=== PATIENT | male | born 1955 | race Hispanic/Latino ===

== ENCOUNTER 2017-06-06 16:51 | Observation (INO) | payer BC, OTHER ==
[~2017-06-06] VITALS: Ht 170.2 cm; Wt 85.7 kg
[2017-06-06] MEDS ORDERED: ASPIRIN 81 MG CHEW TAB PO ONE (21:15)
[2017-06-06] MEDS ORDERED: AMLODIPINE BESYL5 MG PO (21:34)
[2017-06-06] MEDS ORDERED: ATENOLOL-CHLOR1 EAC1 PO (21:34)
[2017-06-06] MEDS ORDERED: TADALAFIL PO (21:34)
[2017-06-06] MEDS ORDERED: VITAMIN D31000 UNI1 PO (21:34)
[2017-06-06] MEDS ORDERED: ASPIR 8181 MG PO (21:34)
[2017-06-06] MEDS ORDERED: ATORVASTATIN CA10 MG PO (21:34)
[2017-06-06 21:43] LABS: BASOPHILS % 0.3 % (0.0-1.0); EOSINOPHILS # (AUTO) 0.2 (0.0-0.4); EOSINOPHILS % 1.3 % (0.0-6.0); HEMATOCRIT 35.5 % (38.2-49.6); HEMOGLOBIN 11.9 g/dL (14.0-18.0); LYMPHOCYTES # (AUTO) 2.6 (1.0-3.2); MEAN CORPUSCULAR HEMOGLOBIN 27.9 pg (28-32); MEAN CORPUSCULAR HGB CONC 33.5 g/dL (31-35); MEAN CORPUSCULAR VOLUME 83.3 fL (81-99); MONOCYTES # (AUTO) 1.1 (0.2-0.8); MONOCYTES % 8.2 % (4.4-11.3); NEUTROPHILS # (AUTO) 9.7 (2.1-6.9); NEUTROPHILS % 70.8 % (38.7-80.0); PLATELET COUNT 267 x10e3/uL (140-360); RED BLOOD COUNT 4.26 x10e6/uL (4.3-5.7); RED CELL DISTRIBUTION WIDTH 14.4 % (11.7-14.4)
[2017-06-06 21:51] LABS: INR 0.91; PROTHROMBIN TIME 12.7 seconds (11.9-14.5)
[2017-06-06 21:52] LABS: PARTIAL THROMBOPLASTIN TIME 26.8 seconds (23.8-35.5)
[2017-06-06 22:03] LABS: ALANINE AMINOTRANSFERASE 15 IU/L (0-55); ALBUMIN 3.9 g/dL (3.5-5.0); ALBUMIN/GLOBULIN RATIO 1.3 (0.8-2.0); ALKALINE PHOSPHATASE 52 IU/L (40-150); ANION GAP 13.1 mmol/L (8-16); BLOOD UREA NITROGEN 18 mg/dL (7-26); BUN/CREATININE RATIO 21 (6-25); CALCIUM 9.1 mg/dL (8.4-10.2); CARBON DIOXIDE 29 mmol/L (22-29); CHLORIDE 100 mmol/L (98-107); CREATINE KINASE 117 IU/L (30-200); CREATININE, SERUM 0.84 mg/dL (0.72-1.25); EST GLOMERULAR FILTRATION RATE > 60 ML/MIN (60-); GLUCOSE 111 mg/dL (74-118); POTASSIUM 3.1 mmol/L (3.5-5.1); SODIUM 139 mmol/L (136-145)
[2017-06-06 22:11] LABS: TROPONIN I 0.015 ng/mL (0-0.300)
[2017-06-06] MEDS ORDERED: PANTOPRAZOLE 40 MG 10ML VIAL IV STA (22:16)
[2017-06-06] MEDS ORDERED: SODIUM CHLORIDE 0.9% 1000ML 1,000 ML IV STA (22:29)
[2017-06-06] MEDS ORDERED: SODIUM CHLORIDE 0.9% 1000ML 1,000 ML IV SCH (23:17)
[2017-06-07] VITALS (8 sets, daily range): BP systolic 95–121; BP diastolic 59–83
[2017-06-07] MEDS ORDERED: SODIUM CHLORIDE 0.9% 1000ML 1,000 ML IV ONE
[2017-06-07 06:47] LABS: BASOPHILS % 0.3 % (0.0-1.0); EOSINOPHILS # (AUTO) 0.2 (0.0-0.4); EOSINOPHILS % 2.2 % (0.0-6.0); HEMATOCRIT 25.1 % (38.2-49.6); HEMOGLOBIN 8.6 g/dL (14.0-18.0); LYMPHOCYTES # (AUTO) 1.8 (1.0-3.2); LYMPHOCYTES % 24.4 % (18.0-39.1); MEAN CORPUSCULAR HEMOGLOBIN 28.1 pg (28-32); MEAN CORPUSCULAR HGB CONC 34.3 g/dL (31-35); MONOCYTES # (AUTO) 0.7 (0.2-0.8); MONOCYTES % 9.2 % (4.4-11.3); NEUTROPHILS # (AUTO) 4.7 (2.1-6.9); NEUTROPHILS % 63.5 % (38.7-80.0); PLATELET COUNT 178 x10e3/uL (140-360); RED BLOOD COUNT 3.06 x10e6/uL (4.3-5.7); RED CELL DISTRIBUTION WIDTH 14.6 % (11.7-14.4)
[2017-06-07 07:12] LABS: ALANINE AMINOTRANSFERASE 13 IU/L (0-55); ALBUMIN 2.8 g/dL (3.5-5.0); ALBUMIN/GLOBULIN RATIO 1.5 (0.8-2.0); ALKALINE PHOSPHATASE 45 IU/L (40-150); ANION GAP 10.7 mmol/L (8-16); BLOOD UREA NITROGEN 17 mg/dL (7-26); BUN/CREATININE RATIO 25 (6-25); CALCIUM 7.6 mg/dL (8.4-10.2); CARBON DIOXIDE 26 mmol/L (22-29); CHLORIDE 106 mmol/L (98-107); CREATININE, SERUM 0.67 mg/dL (0.72-1.25); EST GLOMERULAR FILTRATION RATE > 60 ML/MIN (60-); GLUCOSE 107 mg/dL (74-118); SODIUM 140 mmol/L (136-145)
[2017-06-07 07:14] LABS: POTASSIUM 2.7 mmol/L (3.5-5.1)
[2017-06-07 07:34] LABS: HEMATOCRIT 25.5 % (38.2-49.6); HEMOGLOBIN 8.5 g/dL (14.0-18.0)
[2017-06-07] MEDS ORDERED: POTASSIUM CHLORIDE 20 MEQ TAB CR PO STA (08:12)
[2017-06-07] MEDS ORDERED: POTASSIUM CHLORIDE 20MEQ/100ML 200 ML IV ONE (08:30)
[2017-06-07] MEDS ORDERED: PANTOPRAZOLE 40 MG 10ML VIAL IV SCH (09:00)
[2017-06-07] MEDS ORDERED: AMLODIPINE BESYLATE 5 MG TAB PO SCH (09:00)
[2017-06-07] MEDS: PANTOPRAZOLE 40 MG 10ML VIAL IV SCH ×2 (09:35→21:45)
--- NOTE | 2017-06-07 09:46 | History and Physical ---
PRIMARY CARE PHYSICIAN: Dr. Geovani Younger CHIEF COMPLAINT: Bright red blood per rectum. HISTORY OF PRESENT ILLNESS: This is a 62-year-old man with a history of prediabetes and remote history of bright red blood per rectum many years ago at which time it spontaneously resolved without going to the hospital. The patient now developing bright red blood per rectum, which occurred 4 times in 1 day. Therefore, he came to the hospital. Denies any abdominal pain. His last colonoscopy was in 2012, which showed some polyps. Denies any other symptoms at this time. PAST MEDICAL HISTORY: Prediabetes, hypertension, hyperlipidemia, bright red blood per rectum, colonic polyps, cigarette use, and alcohol use. PAST SURGICAL HISTORY: None. ALLERGIES: PER ELECTRONIC MEDICAL RECORD. FAMILY HISTORY/SOCIAL HISTORY: The patient is . He has 4 children. Drinks about 2-3 beers a day and 1-2 cigarettes per day. MEDICATIONS: Per electronic medical record. REVIEW OF SYSTEMS: Denies any dizziness or chest pain. PHYSICAL EXAMINATION VITAL SIGNS: Reviewed. GENERAL: A tired-appearing man resting in bed. HEENT: Anicteric. Pupils respond to light. No oral lesions. CARDIOVASCULAR: Normal S1 and S2. LUNGS: Moderate breath sounds. ABDOMEN: Soft, nontender and nondistended. EXTREMITIES: No edema or calf tenderness. NEUROLOGICAL: Alert and oriented times 3. Moves all extremities. SKIN: Dry. PSYCHIATRIC: Normal affect. LABS: Reviewed. MEDICATIONS: Reviewed. ASSESSMENT AND PLAN: This is a 62-year-old man with: 1. Gastrointestinal bleed: Will consult gastroenterology services for endoscopy. Will start intravenous proton pump inhibitor and avoid nonsteroidal anti-inflammatory drugs. 2. Hypotension: Bolus fluids as needed. 3. Electrolyte derangement with hypokalemia: Replace and recheck. 4. Normocytic anemia: There is a trend downwards. Will follow and transfuse if hemoglobin is less than 8. 5. 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 6. Prophylaxis: Will use sequential compression devices and proton pump inhibitor. 7. Disposition: Follow up gastroenterology recommendations. Follow H and H and potassium levels later on this morning. Job#: [id number] RI
[2017-06-07] MEDS: KCL 20MEQ/.9 SOD CHL 1,000 ML IV SCH ×2 (11:00→20:30)
[2017-06-07] MEDS ORDERED: POTASSIUM CHLORIDE 20 MEQ TAB CR PO NR (12:00)
[2017-06-07 12:10] LABS: BASOPHILS % 0.5 % (0.0-1.0); EOSINOPHILS # (AUTO) 0.2 (0.0-0.4); EOSINOPHILS % 2.4 % (0.0-6.0); HEMATOCRIT 26.7 % (38.2-49.6); HEMOGLOBIN 8.8 g/dL (14.0-18.0); LYMPHOCYTES # (AUTO) 2.1 (1.0-3.2); LYMPHOCYTES % 26.5 % (18.0-39.1); MEAN CORPUSCULAR HEMOGLOBIN 27.8 pg (28-32); MEAN CORPUSCULAR VOLUME 84.2 fL (81-99); MONOCYTES # (AUTO) 0.9 (0.2-0.8); MONOCYTES % 11.4 % (4.4-11.3); NEUTROPHILS # (AUTO) 4.6 (2.1-6.9); NEUTROPHILS % 58.9 % (38.7-80.0); PLATELET COUNT 190 x10e3/uL (140-360); RED BLOOD COUNT 3.17 x10e6/uL (4.3-5.7); RED CELL DISTRIBUTION WIDTH 14.8 % (11.7-14.4)
[2017-06-07] MEDS ORDERED: PEG (High)/E-LYTE SOLN 4,000 ML BTL PO ONE (17:00)
[2017-06-07] MEDS: FERROUS SULFATE 325 MG TAB PO SCH (18:07)
[2017-06-07] MEDS: MULTIVITAMINS/MINERALS TAB PO SCH (18:07)
[2017-06-07] MEDS: ASCORBIC ACID 500 MG TAB PO SCH (18:08)
[2017-06-07] MEDS ORDERED: METOCLOPRAMIDE HCL 10 MG/2ML VIAL ONE (18:43)
[2017-06-07] MEDS ORDERED: PROPOFOL IV EMULSION 10 MG/ML 20 ML VIAL ONE (18:43)
[2017-06-07 19:05] LABS: BASOPHILS % 0.5 % (0.0-1.0); EOSINOPHILS # (AUTO) 0.2 (0.0-0.4); EOSINOPHILS % 2.7 % (0.0-6.0); HEMATOCRIT 25.6 % (38.2-49.6); HEMOGLOBIN 8.6 g/dL (14.0-18.0); LYMPHOCYTES # (AUTO) 2.2 (1.0-3.2); LYMPHOCYTES % 27.8 % (18.0-39.1); MEAN CORPUSCULAR HEMOGLOBIN 28.3 pg (28-32); MEAN CORPUSCULAR HGB CONC 33.6 g/dL (31-35); MEAN CORPUSCULAR VOLUME 84.2 fL (81-99); MONOCYTES # (AUTO) 0.8 (0.2-0.8); MONOCYTES % 9.8 % (4.4-11.3); NEUTROPHILS # (AUTO) 4.6 (2.1-6.9); NEUTROPHILS % 59.1 % (38.7-80.0); PLATELET COUNT 185 x10e3/uL (140-360); RED BLOOD COUNT 3.04 x10e6/uL (4.3-5.7); RED CELL DISTRIBUTION WIDTH 14.8 % (11.7-14.4)
[2017-06-07] MEDS ORDERED: MIDAZOLAM HCL 2 MG/2 ML VIAL ONE (19:10)
[2017-06-07] MEDS: ATORVASTATIN 10 MG TAB PO SCH (21:54)
[2017-06-08] VITALS (7 sets, daily range): BP systolic 93–136; BP diastolic 63–83
[2017-06-08 00:49] LABS: BASOPHILS % 0.5 % (0.0-1.0); EOSINOPHILS # (AUTO) 0.3 (0.0-0.4); EOSINOPHILS % 3.2 % (0.0-6.0); HEMATOCRIT 27.1 % (38.2-49.6); HEMOGLOBIN 8.9 g/dL (14.0-18.0); LYMPHOCYTES # (AUTO) 2.7 (1.0-3.2); LYMPHOCYTES % 31.5 % (18.0-39.1); MEAN CORPUSCULAR HEMOGLOBIN 27.8 pg (28-32); MEAN CORPUSCULAR HGB CONC 32.8 g/dL (31-35); MEAN CORPUSCULAR VOLUME 84.7 fL (81-99); MONOCYTES # (AUTO) 0.9 (0.2-0.8); MONOCYTES % 9.8 % (4.4-11.3); NEUTROPHILS # (AUTO) 4.8 (2.1-6.9); NEUTROPHILS % 54.7 % (38.7-80.0); PLATELET COUNT 207 x10e3/uL (140-360)
[2017-06-08] MEDS: KCL 20MEQ/.9 SOD CHL 1,000 ML IV SCH ×2 (06:03→16:31)
[2017-06-08 07:09] LABS: BASOPHILS # (AUTO) 0.1 (0.0-0.1); BASOPHILS % 0.7 % (0.0-1.0); EOSINOPHILS # (AUTO) 0.2 (0.0-0.4); EOSINOPHILS % 2.9 % (0.0-6.0); HEMATOCRIT 27.9 % (38.2-49.6); LYMPHOCYTES # (AUTO) 2.1 (1.0-3.2); MEAN CORPUSCULAR HEMOGLOBIN 27.4 pg (28-32); MEAN CORPUSCULAR HGB CONC 32.3 g/dL (31-35); MEAN CORPUSCULAR VOLUME 84.8 fL (81-99); MONOCYTES # (AUTO) 0.7 (0.2-0.8); NEUTROPHILS # (AUTO) 3.9 (2.1-6.9); NEUTROPHILS % 55.5 % (38.7-80.0); PLATELET COUNT 214 x10e3/uL (140-360); RED BLOOD COUNT 3.29 x10e6/uL (4.3-5.7); RED CELL DISTRIBUTION WIDTH 15.1 % (11.7-14.4)
[2017-06-08 07:36] LABS: % IRON SATURATION 41 % (15-50); ANION GAP 12.5 mmol/L (8-16); BLOOD UREA NITROGEN 10 mg/dL (7-26); BUN/CREATININE RATIO 14 (6-25); CALCIUM 8.6 mg/dL (8.4-10.2); CARBON DIOXIDE 25 mmol/L (22-29); CHLORIDE 114 mmol/L (98-107); CREATININE, SERUM 0.74 mg/dL (0.72-1.25); EST GLOMERULAR FILTRATION RATE > 60 ML/MIN (60-); GLUCOSE 99 mg/dL (74-118); IRON 134 ug/dL (65-175); MAGNESIUM 1.8 MG/DL (1.3-2.1); POTASSIUM 3.5 mmol/L (3.5-5.1); SODIUM 148 mmol/L (136-145); TOTAL IRON BINDING CAPACITY 325 ug/dL (261-478); TRANSFERRIN 232 mg/dL (174-364)
[2017-06-08 07:58] LABS: FERRITIN 28.21 ng/mL (21.81-274.66)
[2017-06-08] MEDS: FERROUS SULFATE 325 MG TAB PO SCH ×2 (08:00→16:30)
[2017-06-08 08:38] LABS: FOLATE > 20.0 ng/mL (7.0-15.4)
[2017-06-08] MEDS: ASCORBIC ACID 500 MG TAB PO SCH ×2 (09:17→16:30)
[2017-06-08] MEDS: MULTIVITAMINS/MINERALS TAB PO SCH ×2 (09:17→16:30)
[2017-06-08] MEDS: PANTOPRAZOLE 40 MG 10ML VIAL IV SCH ×2 (09:17→20:59)
[2017-06-08 12:42] LABS: BASOPHILS % 0.5 % (0.0-1.0); EOSINOPHILS # (AUTO) 0.2 (0.0-0.4); HEMATOCRIT 26.1 % (38.2-49.6); HEMOGLOBIN 8.5 g/dL (14.0-18.0); LYMPHOCYTES % 30.6 % (18.0-39.1); MEAN CORPUSCULAR HEMOGLOBIN 27.7 pg (28-32); MEAN CORPUSCULAR HGB CONC 32.6 g/dL (31-35); MONOCYTES # (AUTO) 0.7 (0.2-0.8); NEUTROPHILS # (AUTO) 3.7 (2.1-6.9); NEUTROPHILS % 55.6 % (38.7-80.0); PLATELET COUNT 198 x10e3/uL (140-360); RED BLOOD COUNT 3.07 x10e6/uL (4.3-5.7); RED CELL DISTRIBUTION WIDTH 15.1 % (11.7-14.4)
[2017-06-08] MEDS ORDERED: FENTANYL CITRATE/PF 100MCG/2 ML INJ ONE (15:09)
[2017-06-08] MEDS ORDERED: MIDAZOLAM HCL 2 MG/2 ML VIAL ONE (15:09)
[2017-06-08] MEDS ORDERED: PROPOFOL IV EMULSION 10 MG/ML 50 ML VIAL ONE (15:10)
[2017-06-08 18:51] LABS: BASOPHILS % 0.4 % (0.0-1.0); EOSINOPHILS # (AUTO) 0.3 (0.0-0.4); EOSINOPHILS % 4.1 % (0.0-6.0); HEMATOCRIT 26.8 % (38.2-49.6); HEMOGLOBIN 8.8 g/dL (14.0-18.0); LYMPHOCYTES # (AUTO) 2.7 (1.0-3.2); LYMPHOCYTES % 36.8 % (18.0-39.1); MEAN CORPUSCULAR HEMOGLOBIN 28.1 pg (28-32); MEAN CORPUSCULAR HGB CONC 32.8 g/dL (31-35); MEAN CORPUSCULAR VOLUME 85.6 fL (81-99); MONOCYTES # (AUTO) 0.8 (0.2-0.8); NEUTROPHILS # (AUTO) 3.5 (2.1-6.9); NEUTROPHILS % 47.6 % (38.7-80.0); PLATELET COUNT 203 x10e3/uL (140-360); RED BLOOD COUNT 3.13 x10e6/uL (4.3-5.7)
[2017-06-08] MEDS: ATORVASTATIN 10 MG TAB PO SCH (23:00)
[2017-06-09] VITALS: BP 141/73
--- NOTE | 2017-06-09 02:40 | Operative Report ---
DATE OF PROCEDURE: June 08, 2017 REFERRING PHYSICIAN: Dr. Alton Angel PROCEDURE PERFORMED: Colonoscopy and polypectomy. INDICATIONS FOR COLONOSCOPY: Anemia and rectal bleeding. MEDICATION: Patient was done under MAC. Please see anesthesiologist's note. PROCEDURE: With the patient in the left lateral decubitus position, the flexible fiberoptic Olympus colonoscope was inserted into the rectum with ease and advanced all the way to the cecum. The right colon was suboptimally prepped, but visualization was good. The scope was then withdrawn slowly. Whatever was visualized, the mucosa overlying the cecum appeared to be within normal limits. Scattered diverticular disease was noted pretty much throughout the colon. Approximately, a 1 cm sessile polypoid lesion was snared from the distal transverse colon. The descending and sigmoid other than for diverticulosis appeared to be within normal limits. One polyp was hot biopsied from the rectum. The scope was then retroflexed into the distal rectum and small internal hemorrhoids were noted, none of which was actively bleeding. The scope was then straightened out. The rectosigmoid area, as well as the distal rectal area were decompressed. The scope was subsequently withdrawn. Patient tolerated the procedure well. IMPRESSION 1. Diverticulosis. 2. Transverse colon polyp approximately 1 cm, snared. 3. Rectal polyp, hot biopsied. 4. Internal hemorrhoids, none actively bleeding. PLAN: Follow up histology. Initiate GI soft diet. Patient will need a GI bleed scan. Timing of followup colonoscopy pending pathology report. Job#: [id number] RI cc:ALTON ANGEL MD
[2017-06-09 04:00] VITALS: BP 103/59
[2017-06-09 05:48] VITALS: BP 103/59
[2017-06-09 06:27] LABS: BASOPHILS % 0.4 % (0.0-1.0); EOSINOPHILS # (AUTO) 0.3 (0.0-0.4); EOSINOPHILS % 3.8 % (0.0-6.0); HEMATOCRIT 26.9 % (38.2-49.6); HEMOGLOBIN 8.8 g/dL (14.0-18.0); LYMPHOCYTES # (AUTO) 1.7 (1.0-3.2); LYMPHOCYTES % 22.9 % (18.0-39.1); MEAN CORPUSCULAR HEMOGLOBIN 27.8 pg (28-32); MEAN CORPUSCULAR HGB CONC 32.7 g/dL (31-35); MEAN CORPUSCULAR VOLUME 84.9 fL (81-99); MONOCYTES # (AUTO) 0.7 (0.2-0.8); MONOCYTES % 9.6 % (4.4-11.3); NEUTROPHILS # (AUTO) 4.7 (2.1-6.9); NEUTROPHILS % 63.2 % (38.7-80.0); PLATELET COUNT 194 x10e3/uL (140-360); RED BLOOD COUNT 3.17 x10e6/uL (4.3-5.7)
[2017-06-09] MEDS: KCL 20MEQ/.9 SOD CHL 1,000 ML IV SCH ×3 (07:11→22:30)
[2017-06-09 08:00] VITALS: BP 130/89
[2017-06-09] MEDS: MULTIVITAMINS/MINERALS TAB PO SCH ×2 (08:33→17:33)
[2017-06-09] MEDS: FERROUS SULFATE 325 MG TAB PO SCH ×2 (08:33→17:33)
[2017-06-09] MEDS: ASCORBIC ACID 500 MG TAB PO SCH ×2 (08:33→17:33)
[2017-06-09] MEDS: PANTOPRAZOLE 40 MG 10ML VIAL IV SCH ×2 (08:33→21:00)
--- NOTE | 2017-06-09 13:15 | Diagnostic Imaging Report ---
Tagged-RBC GI Bleed Study Clinical information: GI bleeding Discussion: The patient's own red blood cells were labeled with 22 mCi of technetium-99m pertechnetate using the in vitro method (UltraTag). Dynamic images of the abdomen were obtained through 60 minutes. Distribution of tracer activity appears physiologic throughout the abdomen. No abnormal accumulation of tracer is seen within the gastrointestinal lumen. Impression: No scan evidence of active gastrointestinal bleeding at this time. Signed by: Dr. Josefina Xie M.D. on 06/09/2017 1:11 PM
[2017-06-09 16:00] VITALS: BP 120/67
[2017-06-09 18:19] LABS: BASOPHILS % 0.3 % (0.0-1.0); EOSINOPHILS # (AUTO) 0.2 (0.0-0.4); HEMATOCRIT 26.2 % (38.2-49.6); HEMOGLOBIN 8.5 g/dL (14.0-18.0); LYMPHOCYTES # (AUTO) 1.6 (1.0-3.2); MEAN CORPUSCULAR HEMOGLOBIN 27.4 pg (28-32); MEAN CORPUSCULAR HGB CONC 32.4 g/dL (31-35); MEAN CORPUSCULAR VOLUME 84.5 fL (81-99); NEUTROPHILS # (AUTO) 9.1 (2.1-6.9); NEUTROPHILS % 76.3 % (38.7-80.0); PLATELET COUNT 197 x10e3/uL (140-360); RED CELL DISTRIBUTION WIDTH 14.9 % (11.7-14.4)
[2017-06-09 20:00] VITALS: BP 126/71
[2017-06-09] MEDS: ATORVASTATIN 10 MG TAB PO SCH (21:00)
[2017-06-10] VITALS (9 sets, daily range): BP systolic 109–148; BP diastolic 60–88
[2017-06-10 06:40] LABS: BASOPHILS % 0.2 % (0.0-1.0); EOSINOPHILS # (AUTO) 0.3 (0.0-0.4); EOSINOPHILS % 2.5 % (0.0-6.0); HEMATOCRIT 24.6 % (38.2-49.6); LYMPHOCYTES # (AUTO) 1.7 (1.0-3.2); LYMPHOCYTES % 15.7 % (18.0-39.1); MEAN CORPUSCULAR HEMOGLOBIN 27.7 pg (28-32); MEAN CORPUSCULAR HGB CONC 32.5 g/dL (31-35); MEAN CORPUSCULAR VOLUME 85.1 fL (81-99); MONOCYTES % 9.2 % (4.4-11.3); NEUTROPHILS # (AUTO) 7.7 (2.1-6.9); NEUTROPHILS % 72.2 % (38.7-80.0); PLATELET COUNT 195 x10e3/uL (140-360); RED BLOOD COUNT 2.89 x10e6/uL (4.3-5.7); RED CELL DISTRIBUTION WIDTH 14.9 % (11.7-14.4); RETICULOCYTE % 2.5 % (0.8-2.2)
[2017-06-10] MEDS: FERROUS SULFATE 325 MG TAB PO SCH ×2 (08:00→16:57)
[2017-06-10] MEDS: KCL 20MEQ/.9 SOD CHL 1,000 ML IV SCH ×2 (08:30→18:30)
[2017-06-10] MEDS: ASCORBIC ACID 500 MG TAB PO SCH ×2 (09:00→16:57)
[2017-06-10] MEDS: MULTIVITAMINS/MINERALS TAB PO SCH ×2 (09:00→16:57)
[2017-06-10] MEDS: PANTOPRAZOLE 40 MG 10ML VIAL IV SCH ×2 (09:19→20:20)
[2017-06-10] MEDS ORDERED: PROTONIX40 MG PO (11:54)
[2017-06-10] MEDS ORDERED: Multivitamins/Minerals PO (11:54)
[2017-06-10] MEDS ORDERED: FEOSOL325 MG PO (11:54)
[2017-06-10] MEDS ORDERED: ASCORBIC ACID500 MG PO (11:54)
--- NOTE | 2017-06-10 13:19 | Diagnostic Imaging Report ---
PROCEDURE: SMALL BOWEL SERIES FLUOROSCOPY TIME: 0.4 MINUTES Comparison: None. Indications: ANEMIA Technique: Small bowel follow through exam was performed using oral barium. Preliminary image was obtained before administration of contrast and serial overhead images were obtained after administration of oral barium. Fluoroscopy was performed and spot images were obtained. Findings: SMALL BOWEL FOLLOW THROUGH: Small bowel loops are normal in caliber and distribution. Spot compression views of the terminal ileum are normal. The transit time was normal. IMPRESSION: Unremarkable fluoroscopic small bowel series. Dictated by: Satinder Alba M.D. on 06/10/2017 at 13:28 Electronically approved by: Satinder Alba M.D. on 06/10/2017 at 13:28
[2017-06-10 17:57] LABS: HEMATOCRIT 25.2 % (38.2-49.6); HEMOGLOBIN 8.1 g/dL (14.0-18.0)
[2017-06-10] MEDS: ATORVASTATIN 10 MG TAB PO SCH (20:20)
[2017-06-11] MEDS: KCL 20MEQ/.9 SOD CHL 1,000 ML IV SCH ×2 (04:30→11:35)
[2017-06-11 05:17] VITALS: BP 122/79
[2017-06-11 08:30] VITALS: BP 139/78
[2017-06-11] MEDS: MULTIVITAMINS/MINERALS TAB PO SCH (08:33)
[2017-06-11] MEDS: PANTOPRAZOLE 40 MG 10ML VIAL IV SCH (08:33)
[2017-06-11] MEDS: ASCORBIC ACID 500 MG TAB PO SCH (08:33)
[2017-06-11] MEDS: FERROUS SULFATE 325 MG TAB PO SCH (08:33)
[2017-06-11 12:21] VITALS: BP 140/89
[2017-06-11 13:27] LABS: BASOPHILS % 0.4 % (0.0-1.0); EOSINOPHILS # (AUTO) 0.3 (0.0-0.4); EOSINOPHILS % 3.5 % (0.0-6.0); HEMATOCRIT 26.3 % (38.2-49.6); HEMOGLOBIN 8.6 g/dL (14.0-18.0); LYMPHOCYTES # (AUTO) 1.6 (1.0-3.2); LYMPHOCYTES % 18.1 % (18.0-39.1); MEAN CORPUSCULAR HEMOGLOBIN 28.1 pg (28-32); MEAN CORPUSCULAR HGB CONC 32.7 g/dL (31-35); MEAN CORPUSCULAR VOLUME 85.9 fL (81-99); MONOCYTES # (AUTO) 0.9 (0.2-0.8); MONOCYTES % 10.9 % (4.4-11.3); NEUTROPHILS # (AUTO) 5.7 (2.1-6.9); PLATELET COUNT 211 x10e3/uL (140-360); RED BLOOD COUNT 3.06 x10e6/uL (4.3-5.7); RED CELL DISTRIBUTION WIDTH 15.2 % (11.7-14.4)
[2017-06-11 13:50] LABS: ANION GAP 9.8 mmol/L (8-16); BLOOD UREA NITROGEN 6 mg/dL (7-26); BUN/CREATININE RATIO 9 (6-25); CALCIUM 8.5 mg/dL (8.4-10.2); CARBON DIOXIDE 28 mmol/L (22-29); CHLORIDE 110 mmol/L (98-107); CREATININE, SERUM 0.69 mg/dL (0.72-1.25); EST GLOMERULAR FILTRATION RATE > 60 ML/MIN (60-); GLUCOSE 119 mg/dL (74-118); POTASSIUM 3.8 mmol/L (3.5-5.1); SODIUM 144 mmol/L (136-145)
--- NOTE | 2017-06-12 05:52 | Discharge Summary ---
ADMISSION DIAGNOSES 1. Gastrointestinal bleed. 2. Hypotension. 3. Hypokalemia. 4. Normocytic anemia. 5. Tobacco and alcohol use. DISCHARGE DIAGNOSES 1. Gastrointestinal bleed. 2. Hypotension. 3. Hypokalemia. 4. Normocytic anemia. 5. Tobacco and alcohol use. 6. Diverticulosis. 7. Rectal polyp. 8. Internal hemorrhoids. HISTORY: Patient has a history of prediabetes, hypertension, hyperlipidemia, colonic polyps, cigarette use, alcohol use, and bright red blood per rectum. No past surgical history. HOSPITAL COURSE: A 62-year-old male presented with a history of bright red blood per rectum many years ago which spontaneously resolved without going to the hospital. The bright red blood per rectum has recurred, happening about 4 times in 1 day. Therefore, he came to the hospital. He denies any abdominal pain and nausea. His last colonoscopy was in 2012 which showed polyps. On admission, GI was consulted and patient was started on IV Protonix and avoided nonsteroidal anti-inflammatory medication. Patient was given IV bolus for hypotension and potassium was replaced throughout hospitalization. Per GI, patient had a colonoscopy and polypectomy on June 08, 2017. Findings were diverticulosis; transverse colon polyp of approximately 1 cm which was snared; rectal polyp, hot biopsied; and internal hemorrhoids, none actively bleeding. GI requested the patient have a bleed scan. Bleed scan was done the next day on June 09, 2017, which was also negative and showed no evidence of GI bleeding. At time of discharge, sodium was 144, potassium 3.8, WBC 8.56, hemoglobin of 8.6, and hematocrit of 26.3. Vital signs were stable. Patient was sent home with iron, vitamin C, multivitamins, and Protonix. He is to follow up with GI in 1 to 2 weeks for biopsy result. Dictated by Karin Benson, BODY SHOP ESTIMATOR ALTON KRAUSE MD Job#: [id number] CF
== END 2017-06-11 16:04 | disposition home or self-care (01) ==
LOC: ER 16:51 → ERHOLD 23:24 → MED/SURG2 23:38
PROVIDERS: ADMIT Internal Medicine; ATTEND Internal Medicine
DX: K92.1 Melena (principal); K29.50 Unspecified chronic gastritis without bleeding; K21.0 Gastro-esophageal reflux disease with esophagitis; B96.81 Helicobacter pylori [H. pylori] as the cause of diseases classified elsewhere; D12.3 Benign neoplasm of transverse colon; D12.8 Benign neoplasm of rectum; K63.3 Ulcer of intestine; D64.9 Anemia, unspecified; K64.8 Other hemorrhoids; K57.30 Diverticulosis of large intestine without perforation or abscess without bleeding; K44.9 Diaphragmatic hernia without obstruction or gangrene; I95.9 Hypotension, unspecified; E87.6 Hypokalemia; I10 Essential (primary) hypertension; E78.5 Hyperlipidemia, unspecified; F17.210 Nicotine dependence, cigarettes, uncomplicated; R73.03 Prediabetes
CPT/HCPCS: 36415 ×6; 43239; 45384; 45385; 74250; 78278; 80048 ×2; 80053 ×2; 82270; 82550; 82553; 82607; 82728; 82746; 83540; 83735 ×2; 84132; 84466; 84484; 85014 ×2; 85018 ×2; 85025 ×6; 85045; 85610; 85730; 86850; 86900; 88305; 88312; 93005; 96360; 96374; 99284; A9512 ×2; G0378 ×6; J2250 ×2; J2765; J3480; J7030 ×2

== ENCOUNTER → 2017-06-28 | Day surgery (SDC) | payer BC, OTHER ==
[2017-06-27 16:35] LABS: BASOPHILS # (AUTO) 0.1 (0.0-0.1); BASOPHILS % 0.6 % (0.0-1.0); EOSINOPHILS # (AUTO) 0.5 (0.0-0.4); EOSINOPHILS % 4.9 % (0.0-6.0); HEMATOCRIT 34.4 % (38.2-49.6); HEMOGLOBIN 10.9 g/dL (14.0-18.0); LYMPHOCYTES # (AUTO) 2.2 (1.0-3.2); LYMPHOCYTES % 20.4 % (18.0-39.1); MEAN CORPUSCULAR HEMOGLOBIN 27.5 pg (28-32); MEAN CORPUSCULAR HGB CONC 31.7 g/dL (31-35); MEAN CORPUSCULAR VOLUME 86.9 fL (81-99); MONOCYTES # (AUTO) 1.2 (0.2-0.8); MONOCYTES % 11.1 % (4.4-11.3); NEUTROPHILS # (AUTO) 6.9 (2.1-6.9); NEUTROPHILS % 62.7 % (38.7-80.0); PLATELET COUNT 308 x10e3/uL (140-360); RED BLOOD COUNT 3.96 x10e6/uL (4.3-5.7); RED CELL DISTRIBUTION WIDTH 15.5 % (11.7-14.4)
[2017-06-27 16:52] LABS: ANION GAP 13.7 mmol/L (8-16); BLOOD UREA NITROGEN 12 mg/dL (7-26); BUN/CREATININE RATIO 14 (6-25); CALCIUM 9.1 mg/dL (8.4-10.2); CARBON DIOXIDE 27 mmol/L (22-29); CHLORIDE 105 mmol/L (98-107); CREATININE, SERUM 0.84 mg/dL (0.72-1.25); EST GLOMERULAR FILTRATION RATE > 60 ML/MIN (60-); GLUCOSE 88 mg/dL (74-118); POTASSIUM 3.7 mmol/L (3.5-5.1); SODIUM 142 mmol/L (136-145)
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
[~2017-06-28] MED LIST: AMLODIPINE BESYL5 MG PO; ASCORBIC ACID500 MG PO; ASPIR 8181 MG PO; ATENOLOL-CHLOR1 EAC1 PO; ATORVASTATIN CA10 MG PO; BUPIVACAINE HCL 0.5% INJ 30 ML VIAL INJ ONE; DEXAMETHASONE SOD PHOS INJ 4 MG/ML VIAL ONE; EPHEDRINE SULFATE INJ 50 MG/10 ML SYR ONE; FENTANYL CITRATE/PF 100MCG/2 ML INJ ONE; FEOSOL325 MG PO; HYDROCODONE/APAP 7.5MG-325MG 1 EA TAB ONE; KETOROLAC TROMETHAMINE 30 MG/ML VIAL ONE; LIDOCAINE HCL 2% LOCAL INJ 5 ML SDV VIAL INJ ONE; MIDAZOLAM HCL 2 MG/2 ML VIAL ONE; Multivitamins/Minerals PO; ONDANSETRON HCL INJ 2 MG/ML VIAL ONE; PHENYLEPHRINE HCL 1% 10 MG/ML VIAL ONE; PROPOFOL IV EMULSION 10 MG/ML 20 ML VIAL ONE; PROTONIX40 MG PO; ROCURONIUM BROMIDE 10 MG/ML 5ML VIAL ONE; SEVOFLURANE INHAL SOLN 250 ML PEN BTL ONE; TADALAFIL PO; VITAMIN D31000 UNI1 PO
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
--- NOTE | 2017-06-28 12:44 | Operative Report ---
DATE OF PROCEDURE: June 28, 2017 PREOPERATIVE DIAGNOSIS: Right inguinal hernia. POSTOPERATIVE DIAGNOSIS: Right inguinal hernia. PROCEDURE PERFORMED: Repair of right inguinal hernia with UltraPro hernia system, oval type. ANESTHESIA: General endotracheal. ESTIMATED BLOOD LOSS: Minimal. DRAINS: None. COMPLICATIONS: None. INDICATIONS AND FINDINGS: A 62-year-old male who had a longstanding history of right inguinal hernia for which he had not had any repair because the hernia was asymptomatic. He 2 weeks ago developed pain, reason for which he was repaired. INTRAOPERATIVE FINDINGS: The patient had a direct inguinal hernia with herniation of properitoneal fat through the floor. There was no indirect hernia sac. The herniation was rather large, and it occupied most of the internal inguinal ring as well as the floor of the canal. The UltraPro hernia system, oval type, was placed. There was no evidence of femoral herniation. DESCRIPTION OF PROCEDURE: With the patient lying on the operative table in the supine position after administration of general anesthesia, he was prepped and draped for repair of a right inguinal hernia. Preemptive anesthesia was given with 0.25% Marcaine with epinephrine as an ilioinguinal nerve block and an incisional nerve block. A transverse groin incision was made, deepened through the skin, subcutaneous tissue, Delores fascia until the external oblique aponeurosis was identified. This was incised along the course of its fibers, transecting the external inguinal ring. Medial and lateral leaves were developed. The cord was mobilized at the level of the pubic tubercle and retracted away from the operative field by a Bri drain. The cremaster veil was incised, and the cord was explored. There was no indirect hernia sac. There was a large herniation of the properitoneal fat that was intimately attached to the cord. We did tedious dissection, careful dissection the cord from the direct herniation. We then developed the properitoneal space using blunt dissection and then reduced the herniation into the preperitoneal area and then deployed the UltraPro hernia system, oval type, with the underlay part of the mesh over the direct space and the overlay part of the mesh over the inguinal canal floor. A slit was made to accommodate the cord. Then the mesh was secured to the local tissues using a series of interrupted 2-0 Ethibond sutures that were also used to close the slit. The repair appeared to be strong. There was no undue tension. The wound was irrigated. Bleeding points were cauterized. Then the wound was closed in 2 layers using 2-0 Vicryl for the external oblique aponeurosis, 2-0 catgut for the soft tissues, and the skin was closed using kaz. The patient tolerated the procedure well, was taken to the recovery room in stable condition. Job#: [id number] EV
== END | disposition home or self-care (01) ==
LOC: OR 09:11
PROVIDERS: ATTEND Surgery
DX: K40.90 Unilateral inguinal hernia, without obstruction or gangrene, not specified as recurrent (principal); K21.9 Gastro-esophageal reflux disease without esophagitis; K44.9 Diaphragmatic hernia without obstruction or gangrene; K57.90 Diverticulosis of intestine, part unspecified, without perforation or abscess without bleeding; G47.33 Obstructive sleep apnea (adult) (pediatric); I10 Essential (primary) hypertension; I49.9 Cardiac arrhythmia, unspecified; F17.210 Nicotine dependence, cigarettes, uncomplicated; Z01.810 Encounter for preprocedural cardiovascular examination; Z01.812 Encounter for preprocedural laboratory examination; Z01.818 Encounter for other preprocedural examination
CPT/HCPCS: 36415; 49505; 71046; 80048; 85025; 93005; C1781; J1100; J1885; J2001; J2250; J2370; J2405